=== PATIENT | female | born 1980 | race Caucasian/White ===

== ENCOUNTER 2017-03-24 07:50 | Day surgery (SDC) | payer OTHER ==
[~2017-03-24] VITALS: Ht 167.6 cm; Wt 59.0 kg
[~2017-03-24 07:50] MED LIST: DEPO-PROVER150 MG/ML IM; LOSARTAN-HCTZ1 EACH PO
[2017-03-24] MEDS ORDERED: MULTIVITAMINS1 EAC7 PO (08:09)
--- NOTE | 2017-03-24 09:25 | NUR ---
03/24/17 0925 Nirali Amin 0912 RESP EVEN AND UNLABORED. PT AWAKE AND TALKING. 0923 O2 REMOVED, O2 SAT 100%
--- NOTE | 2017-03-30 18:42 | OR ---
[facility] [address], [place] [address] Signed DATE OF OPERATION: 03/24/2017 SURGEON: Yoko Varner MD PREOPERATIVE DIAGNOSES: 1. Intermittent random vomiting. 2. History of multiple episodes of close head injury/concussions. POSTOPERATIVE DIAGNOSIS: Moderate diffuse gastritis. PROCEDURES: EGD with CLOtest and biopsies of the bulb, antrum and body of stomach. ESTIMATED BLOOD LOSS: None. 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 She continues to smoke about 5 cigarettes a day and has 1 or 2 glasses of wine each night for dinner. However, she has had random episodes of vomiting in the last 4 or 5 years. It is not associated with nausea. It is not related to food or even stress. She cannot related to certain times in the day. Her was concerned, so they mentioned it to the primary care provider. She was asked to see me for an upper endoscopy. In the office, I gave her a pamphlet on upper endoscopy and we looked at that together in detail. She understands the nature of the test along with the risks including, but not limited to, gas bloating, crampy abdominal pain, bleeding, perforation, requiring surgery, and missed diagnosis. She also understands the need for IV conscious sedation. She had expressed understanding and wished to proceed. PROCEDURE NOTE: Tisha was taken into our endoscopy suite and placed in the supine semi-recumbent position. The posterior oropharynx was anesthetized with Hurricaine spray. A bite block was utilized for the case. She was given divided doses of 7 mg of Versed and 100 mcg of fentanyl. The bite block was utilized. The adult gastroscope was introduced and advanced all the way out into the third portion of the duodenum under direct visualization of camera without difficulty. The duodenum was unremarkable. The pyloric channel showed some erythematous changes but no ulcerations. Consequently we took a biopsy out of the pylorus. The stomach was similar. It showed moderate diffuse erythematous changes with no chari ulcerations. We took biopsies from the antrum and Electronically Signed By: YOKO VARNER MD 03/30/17 184 PATIENT NAME: TISHA GOMES OPERATIVE REPORT DATE OF : 82 PHYSICIAN: YOKO VARNER MD REPORT #: [id number] REPORT IS CONFIDENTIAL AND NOT TO BE RELEASED WITHOUT AUTHORIZATION [facility] [address] [place] [id number] Signed body of the stomach for pathologic review. A biopsy was taken of the antrum for CLOtest as well. Upon retroflexion of the scope, there was no evidence of a hiatal hernia. No gastric or esophageal varices. The scope was withdrawn up through the GE junction, which was compliant without stricture. There was very minimal if any disruption to her Z-line. No Caro's mucosa, no distal esophagitis. The middle and upper esophagus were unremarkable. After this, the gas was suctioned out and the gastroscope removed. Tisha tolerated the procedure quite well. RECOMMENDATIONS: Tisha will follow up in my office in 7 to 14 days to review her results. She might consider an H2 adrian or proton pump inhibitor. Yoko Varner MD ALB/MODL /[id number] cc: Reina Hurt PA-C Electronically Signed By: YOKO VARNER MD 03/30/17 1842 PATIENT NAME: TISHA GOMES OPERATIVE REPORT DATE OF : 82 PHYSICIAN: YOKO VARNER MD REPORT #: [id number] REPORT IS CONFIDENTIAL AND NOT TO BE RELEASED WITHOUT AUTHORIZATION
== END 2017-03-24 09:43 | disposition home or self-care (01) ==
LOC: OPS 07:50 → DS 07:50 → OPS 09:00
PROVIDERS: Colon & Rectal Surgery
PROC: 0DB78ZX Excision of Stomach, Pylorus, Via Natural or Artificial Opening Endoscopic, Diagnostic (ICD-10-PCS; 2017-03-24)
PROC: 0DB68ZX Excision of Stomach, Via Natural or Artificial Opening Endoscopic, Diagnostic (ICD-10-PCS; principal; 2017-03-24 09:00)
DX: K29.50 Unspecified chronic gastritis without bleeding (principal); K29.80 Duodenitis without bleeding; F17.210 Nicotine dependence, cigarettes, uncomplicated; I10 Essential (primary) hypertension; Z86.19 Personal history of other infectious and parasitic diseases
CPT/HCPCS: 84703; 86677; 99153; G0500; J2250; J3010; J7120